=== PATIENT | male | born 1975 | race Two or more races ===

== ENCOUNTER 2024-03-22 06:31 | Outpatient (CLI) | payer MEDICARE, MEDICAID ==
[~2024-03-22 06:31] MED LIST: ESCI-8 PO
[2024-03-22 07:30] VITALS: BP 100/65; PULSE 90; RESP 16; TEMP 98.2; O2SAT 98
[2024-03-22 08:47] VITALS: BP 100/65; PULSE 90; RESP 16; TEMP 98.2; O2SAT 98
== END 2024-03-22 08:41 | disposition left against medical advice (07) ==
LOC: CSU 06:31 → EDSTATUS 03-26 05:50
PROVIDERS: ATTEND Nurse Practitioner Psychiatric/Mental Health
DX: F41.9 Anxiety disorder, unspecified (principal); F10.10 Alcohol abuse, uncomplicated; F14.90 Cocaine use, unspecified, uncomplicated; F15.90 Other stimulant use, unspecified, uncomplicated
CPT/HCPCS: 90839; 90840

== ENCOUNTER 2024-05-06 04:40 | Emergency (ER) | payer MEDICARE, MEDICAID ==
[~2024-05-06] VITALS: Ht 180.3 cm; Wt 64.0 kg
[2024-05-06 05:14] VITALS: BP 114/71; PULSE 87; RESP 20; TEMP 97.7; O2SAT 100
== END 2024-05-06 06:54 | disposition left against medical advice (07) ==
LOC: EMS 04:41
DX: F22 Delusional disorders (principal); Z53.21 Procedure and treatment not carried out due to patient leaving prior to being seen by health care provider